=== PATIENT | male | born 1950 | race Caucasian/White ===

== ENCOUNTER 2017-05-19 20:38 | Emergency (ER) | payer MEDICARE, MEDICAID ==
[~2017-05-19] VITALS: Ht 177.8 cm; Wt 75.0 kg
--- NOTE | 2017-05-19 23:00 | REPUSA ---
CT of the cervical spine Clinical history: Pain. Trauma. Technique: Multiple axial CT images were obtained through the cervical spine without administration o f contrast. Coronal and sagittal 3-D reconstructed images were also obtained. Comparison: None. Findings: The cervical vertebral bodies are in satisfactory positioning and alignment. No fractures or dislocat ions are demonstrated. The odontoid process is intact. Intervertebral disc spaces are severely narrow ed at C4/C5, C5/C6, C6/C7, and C7/T1. Mild disc bulging is noted at all of these levels, without evid ence of central canal stenosis. Moderate bilateral neural foraminal narrowing is noted at these level s however. There is no evidence of facet subluxation. Moderate bilateral facet arthropathy with scler osis and osteophytes are noted. The cervical cranial junction is intact. The surrounding soft tissue s are within normal limits. Impression: 1. No acute fracture or traumatic injury. 2. Severe degenerative disc disease with small disc osteophyte complexes and disc bulges at C4/C5, C5 /C6, C6/C7, and C7/T1. There is no evidence of central canal stenosis at these levels, but there is m oderate bilateral neural foraminal narrowing. 3. Moderate diffuse bilateral facet arthropathy.
--- NOTE | 2017-05-19 23:00 | REPUSA ---
CT of the head Clinical history: trauma. Protocol: Multiple axial CT images obtained with 5 mm slice thickness were obtained through the head without administration of contrast. Comparison: None. Findings: The ventricles and sulci are symmetric but prominent in size bilaterally. There are periven tricular areas of low attenuation throughout the deep white matter. There is no evidence of acute hem orrhage or infarct. There is no midline shift, mass effect, or extra-axial fluid collection. The osse ous structures are unremarkable. The visualized paranasal sinuses and mastoid air cells are clear. Impression: No acute hemorrhage or infarct. Findings are consistent with moderate age-related atrophy and chronic small vessel ischemic disease.
[2017-05-20 06:24] VITALS: BP 131/90
--- NOTE | 2017-05-20 08:26 | ED PDOC ---
Post-Departure Follow-Up certified letter sent to patient pertaining to radiology report Virginia Small MD May 20, 2017 08:26
== END 2017-05-20 06:26 | disposition home or self-care (01) ==
LOC: EDBD 20:38 → M ED 20:38
DX: F10.129 Alcohol abuse with intoxication, unspecified (principal); G89.29 Other chronic pain; M54.9 Dorsalgia, unspecified; Z52.4 Kidney donor
CPT/HCPCS: 70450; 72125; 99283; G0480

== ENCOUNTER 2017-06-01 18:29 | Emergency (ER) | payer MEDICARE, MEDICAID ==
[~2017-06-01] VITALS: Ht 172.7 cm; Wt 65.9 kg
--- NOTE | 2017-06-01 20:01 | REP ---
HISTORY: Abdominal pain. The technique utilized in obtaining the radiograph has magnified the cardiac silhouette and accentuated the interstitial markings. The superior mediastinal structures are midline. The cardiac silhouette is unremarkable in size, shape, and position. The diaphragmatic surfaces of the lungs are regular, and the costophrenic angles are clear. The pulmonary chang are clear. The imaged osseous structures are intact. IMPRESSION: There is no acute cardiopulmonary disease. No change from 04/02/2017. There are multiple rib lesions. Some appear expansile. Does the patient have cancer? They could represent old healed fractures. Signed by Jose Post DO 06/02/2017 09:38 A
[2017-06-01 20:17] LABS: BASO # 0.1 10^3/uL (0.0-0.2); BASO % 0.7 % (0.0-1.0); EOS # 0.2 10^3/uL (0.0-0.50); EOS % 3.3 % (0.0-3.0); IMMATURE GRANULOCYTE % 0.4 % (0-0); LYMPH # 1.8 10^3/uL (1.5-4.5); LYMPH % 25.7 % (24.0-44.0); MEAN CORPUSCULAR HEMOGLOBIN 33.2 pg (27.0-33.0); MEAN CORPUSCULAR HGB CONC 36.5 g/dl (32.0-36.5); MEAN CORPUSCULAR VOLUME 91.2 fl (80.0-96.0); MONO # 0.6 10^3/uL (0.0-0.8); MONO % 8.4 % (0.0-5.0); NEUTROPHILS # 4.4 10^3/uL (1.8-7.7); NEUTROPHILS % 61.5 % (36.0-66.0); PLATELET COUNT, AUTOMATED 192 10^3/uL (150-450); RED CELL DISTRIBUTION WIDTH 13.3 % (11.5-14.5); WHITE BLOOD COUNT 7.2 10^3/uL (4.0-10.0)
[2017-06-01 20:32] LABS: ALBUMIN 3.1 GM/DL (3.2-5.2); ALBUMIN/GLOBULIN RATIO 1.03 (1.00-1.93); ALKALINE PHOSPHATASE 139 U/L (45-117); ALT/SGPT 29 U/L (12-78); AMYLASE 44 U/L (25-115); ANION GAP 12 MEQ/L (8-16); AST/SGOT 32 U/L (15-37); BILIRUBIN,DIRECT 0.2 MG/DL (0.0-0.2); BILIRUBIN,TOTAL 0.5 MG/DL (0.2-1.0); BLOOD UREA NITROGEN 4 MG/DL (7-18); CALCIUM LEVEL 8.3 MG/DL (8.8-10.2); CARBON DIOXIDE LEVEL 21 MEQ/L (21-32); CHLORIDE LEVEL 95 MEQ/L (98-107); CREATININE FOR GFR 0.58 MG/DL (0.70-1.30); GLOMERULAR FILTRATION RATE > 60.0 (>49); GLUCOSE, FASTING 73 MG/DL (80-110); POTASSIUM SERUM 3.8 MEQ/L (3.5-5.1); SODIUM LEVEL 128 MEQ/L (136-145); TOTAL PROTEIN 6.1 GM/DL (6.4-8.2)
[2017-06-01] MEDS ORDERED: NS 1,000 ML IV ONE (20:45)
[2017-06-01] MEDS ORDERED: ISOVUE-370 76% 100ML VIAL (Q9967) As Ordered ONE (21:23)
--- NOTE | 2017-06-01 23:10 | REPUSA ---
CT of the chest Clinical statement: Chest pain. Technique: Multiple axial CT images were obtained from the thoracic inlet through the upper abdomen a fter a bolus administration of nonionic intravenous contrast. Coronal and sagittal reconstructions we re also obtained. No comparison is available. Findings: The pulmonary arteries are well-opacified with contrast, with no intraluminal filling defec ts to suggest embolism. The thoracic aorta is unremarkable. Thyroid gland is within normal limits. Th ere is no thoracic lymphadenopathy. There are no pericardial or pleural effusions. The lungs are mer r of any infiltrates. Moderate emphysematous changes are noted, with upper lobe predominance. Limited imaging of the upper abdomen is unremarkable. There are no suspicious osseous lesions. Impression: 1. No evidence of pulmonary embolism. 2. No acute intrapulmonary disease. Moderate emphysema.
--- NOTE | 2017-06-01 23:20 | REPUSA ---
CT of the abdomen and pelvis with contrast Clinical statement: Pain. Technique: Multiple axial CT images were obtained from the base of the lungs through the floor of the pelvis utilizing 5 mm axial slices after administration of oral and nonionic intravenous contrast. C oronal and sagittal reconstructions were also obtained. No comparison is available. Findings: Chest: The visualized lung bases are clear. Abdomen: The liver, spleen, pancreas, left kidney, gallbladder, and adrenal glands are unremarkable. The right kidney is absent. The aorta is within normal limits. There is no evidence of abdominal lymp hadenopathy or ascites. Pelvis: The bowel is unremarkable, with no obstructive or inflammatory changes. The urinary bladder i s within normal limits. The other pelvic structures appear grossly intact. There is no evidence of pe lvic lymphadenopathy or ascites. Bones: There are no suspicious osseous abnormalities seen. There is moderately severe degenerative di sc disease at L5/S1. Impression: 1. No obstructive or inflammatory bowel changes. 2. Absent right kidney. The left kidney is unremarkable. 3. Moderate degenerative disc disease at L5/S1.
[2017-06-02 05:36] VITALS: BP 136/69
--- NOTE | 2017-06-02 05:47 | ECGEPIP ---
Stationary ECG Study [facility] - ED Test Date: 2017-06-01 Pat Name: ELIZABETH GARCIA Department: Room: - Gender: M [employer]: jt : 1950 Requested By: Nils Melton Order Number: [id number] Reading MD: Nils Lozada Measurements Intervals [place] Rate: 78 P: 57 AL: 199 QRS: 33 QRSD: 83 T: 57 QT: 384 QTc: 439 Interpretive Statements SINUS RHYTHM SEPTAL MYOCARDIAL INFARCTION, OF INDETERMINATE AGE SIMILAR TO 08/04/14 Electronically Signed On 06-02-2017 5:47:04 EDT by Nils Lozada
--- NOTE | 2017-06-05 10:42 | ED PDOC ---
Post-Departure Follow-Up certified letter sent to [facility] - needs fu jordanag Mery Francis MD Jun 05, 2017 10:42
== END 2017-06-02 06:17 | disposition home or self-care (01) ==
LOC: M ED 18:29
DX: F10.929 Alcohol use, unspecified with intoxication, unspecified (principal); E87.1 Hypo-osmolality and hyponatremia; F17.210 Nicotine dependence, cigarettes, uncomplicated
CPT/HCPCS: 71010; 71260; 74177; 80048; 80076; 82150; 82550; 82553; 83690; 84484; 85025; 93005; 99285; G0480; Q9967

== ENCOUNTER 2017-09-27 09:55 | Emergency (ER) | payer MEDICARE, MEDICAID ==
[2017-09-27] MEDS: IBUPROFEN 600 MG TAB PO (11:14)
== END 2017-09-27 11:17 | disposition home or self-care (01) ==
LOC: M ED 09:55
DX: S93.401A Sprain of unspecified ligament of right ankle, initial encounter (principal); F17.200 Nicotine dependence, unspecified, uncomplicated; W00.0XXA Fall on same level due to ice and snow, initial encounter; Y92.093 Driveway of other non-institutional residence as the place of occurrence of the external cause; Y93.01 Activity, walking, marching and hiking
CPT/HCPCS: 99284

== ENCOUNTER 2018-05-06 12:31 | Inpatient (IN) | payer MEDICARE, MEDICAID ==
[2018-05-06] MEDS: METOPROLOL TART 50 MG TAB PO (13:19)
[2018-05-06] MEDS: METOPROLOL 5 MG/5 ML VIAL IV ×6 (13:19→15:12)
[2018-05-06 13:34] LABS: BASO % 0.4 % (0.0-1.0); EOS # 0.1 10^3/uL (0.0-0.50); EOS % 0.7 % (0.0-3.0); HEMATOCRIT 41.1 % (42.0-52.0); HEMOGLOBIN 14.7 g/dl (13.5-17.5); IMMATURE GRANULOCYTE % 0.4 % (0-3.0); LYMPH % 9.7 % (24.0-44.0); MEAN CORPUSCULAR HEMOGLOBIN 33.5 pg (27.0-33.0); MEAN CORPUSCULAR HGB CONC 35.8 g/dl (32.0-36.5); MEAN CORPUSCULAR VOLUME 93.6 fl (80.0-96.0); MONO # 0.6 10^3/uL (0.0-0.8); MONO % 5.9 % (0.0-5.0); NEUTROPHILS # 8.5 10^3/uL (1.8-7.7); NEUTROPHILS % 82.9 % (36.0-66.0); PLATELET COUNT, AUTOMATED 180 10^3/uL (150-450); RED BLOOD COUNT 4.39 10^6/uL (4.30-6.10); RED CELL DISTRIBUTION WIDTH 14.5 % (11.5-14.5); WHITE BLOOD COUNT 10.3 10^3/uL (4.0-10.0)
[2018-05-06 13:51] LABS: INR 0.99; PROTHROMBIN TIME 13.2 SECONDS (12.1-14.4)
[2018-05-06 13:52] LABS: PARTIAL THROMBOPLASTIN TIME 29.8 SECONDS (25.4-37.6)
[2018-05-06 14:13] LABS: BLOOD UREA NITROGEN 16 MG/DL (7-18); CREATININE FOR GFR 1.67 MG/DL (0.70-1.30); GLUCOSE, FASTING 144 MG/DL (70-100)
[2018-05-06 14:14] LABS: CARBON DIOXIDE LEVEL 25 MEQ/L (21-32); CHLORIDE LEVEL 99 MEQ/L (98-107); POTASSIUM SERUM 3.8 MEQ/L (3.5-5.1); SODIUM LEVEL 133 MEQ/L (136-145)
[2018-05-06 14:15] LABS: ALT/SGPT 26 U/L (12-78); ANION GAP 9 MEQ/L (8-16); AST/SGOT 38 U/L (7-37); CALCIUM LEVEL 8.5 MG/DL (8.8-10.2); CK-MB VALUE MASS 4.2 NG/ML (<3.6); CPK CREATINE PHOSPHOKINASE 151 U/L (39-308)
[2018-05-06 14:16] LABS: ALBUMIN 3.5 GM/DL (3.2-5.2); ALKALINE PHOSPHATASE 110 U/L (45-117); BILIRUBIN,DIRECT 0.5 MG/DL (0.0-0.2); BILIRUBIN,TOTAL 2.3 MG/DL (0.2-1.0); MB/CK RELATIVE INDEX 0.03 (< OR =4); TOTAL PROTEIN 7.3 GM/DL (6.4-8.2)
[2018-05-06 14:18] LABS: ALBUMIN/GLOBULIN RATIO 0.92 (1.00-1.93); TROPONIN I < 0.02 NG/ML (< 0.10)
[2018-05-06] MEDS: METOPROLOL TART 25 MG TABLET PO (14:53)
[2018-05-06] MEDS ORDERED: METOPROLOL SUCC (TopROL XL) 50MG **XL** TAB PO ×2 (16:45→17:00)
[2018-05-06] MEDS: ASPIRIN 325 MG TAB PO (17:43)
[2018-05-06] MEDS: MULTIVITAMIN -ADULT INJECTION 10 ML, THIAMINE INJection 100 MG, FOLIC ACID 1 MG in NS 1... IV (17:44)
[2018-05-06] MEDS ORDERED: ONDANSETRON 4 MG TAB (S0181) PO (17:45)
[2018-05-06] MEDS ORDERED: ACETAMINOPHEN TAB 650MG DOSE (2X325MG) PO (17:45)
[2018-05-06] MEDS ORDERED: OXAZEPAM 10 MG CAP PO ×2 (18:15)
[2018-05-06] MEDS ORDERED: NS 1,000 ML IV (18:15)
[2018-05-06] MEDS: NS 1,000 ML IV (18:15)
[2018-05-06] MEDS ORDERED: HEPARIN SOD (PORCINE) 5000 UNITS/ML VIAL IV (20:30)
[2018-05-06] MEDS ORDERED: ATORVASTATIN 20 MG TAB PO (21:00)
[2018-05-06 21:21] LABS: FREE THYROXINE INDEX 2.6 % (1.4-3.8); T UPTAKE 36 % (33-40); THYROXINE (T4) 7.2 UG/DL (4.5-12.0)
[2018-05-06] MEDS ORDERED: HEPARIN SOD (PORCINE) 5000 UNITS/ML VIAL SC (22:00)
[2018-05-06] MEDS: DOCUSATE SODIUM 100 MG CAP PO (22:13)
[2018-05-06] MEDS: HEPARIN DRIP 25,000 UNITS in APPROPRIATE DILUENT 1 EA IV (22:15)
[2018-05-06 22:22] LABS: PARTIAL THROMBOPLASTIN TIME 29.3 SECONDS (25.4-37.6)
[2018-05-06 22:41] LABS: CPK CREATINE PHOSPHOKINASE 137 U/L (39-308); MB/CK RELATIVE INDEX 2.41 (< OR =4); TROPONIN I < 0.02 NG/ML (< 0.10)
[2018-05-06 22:59] LABS: OSMOLALITY URINE 541 MOSM/KG (500-800)
[2018-05-07 00:11] LABS: CHLORIDE,RANDOM URINE 22 MEQ/L; POTASSIUM RANDOM URINE 33.1 MEQ/L; SODIUM,RANDOM URINE < 10 MEQ/L
[2018-05-07 00:43] LABS: ESTIMATED AVERAGE GLUCOSE 91 MG/DL (60-110); HEMOGLOBIN A1c 4.8 %
[2018-05-07 01:37] LABS: ETHYL ALCOHOL (ETHANOL) < 0.003 % (0.000-0.010)
[2018-05-07] MEDS ORDERED: THIAMINE 100 MG TAB PO (09:00)
[2018-05-07] MEDS ORDERED: ATORVASTATIN 20 MG TAB PO (09:00)
[2018-05-07] MEDS ORDERED: FOLIC ACID 1 MG TAB PO (09:00)
[2018-05-07] MEDS ORDERED: MULTIVITAMINS/MINERALS THERAP 1 TAB PO (09:00)
[2018-05-07] MEDS ORDERED: ASPIRIN 81 MG ENTERIC TAB PO (09:00)
[2018-05-07 13:00] LABS: HEPATITIS A ANTIBODY IGM NEGATIVE (NEGATIVE); HEPATITIS B CORE ANTIBODY IGM NEGATIVE (NEGATIVE); HEPATITIS B SURFACE ANTIGEN NEGATIVE (NEGATIVE)
[2018-05-07 14:38] LABS: HEPATITIS C VIRUS ABY INDEX 0.1 INDEX (<0.8)
[2018-05-08 12:23] LABS: BEDSIDE GLUCOSE 243 MG/DL (80-115)
== END 2018-05-07 02:52 | disposition short-term general hospital (02) | DRG 64 ==
LOC: M ED 12:31 → M ED INP 18:10 → M PCU 21:38
PROVIDERS: Hospitalist
DX: I63.59 Cerebral infarction due to unspecified occlusion or stenosis of other cerebral artery (principal); I61.4 Nontraumatic intracerebral hemorrhage in cerebellum; I42.6 Alcoholic cardiomyopathy; I48.91 Unspecified atrial fibrillation; F10.10 Alcohol abuse, uncomplicated; F17.210 Nicotine dependence, cigarettes, uncomplicated

== ENCOUNTER 2018-05-15 17:35 | Inpatient (IN) | payer MEDICARE, MEDICAID ==
[2018-05-15] MEDS: PRAVASTATIN 10 MG TAB PO (20:12)
[2018-05-15] MEDS: DOCUSATE SODIUM 100 MG CAP PO (20:12)
[2018-05-16 06:19] LABS: HEMATOCRIT 35.8 % (42.0-52.0); HEMOGLOBIN 12.8 g/dl (13.5-17.5); MEAN CORPUSCULAR HEMOGLOBIN 33.4 pg (27.0-33.0); MEAN CORPUSCULAR HGB CONC 35.8 g/dl (32.0-36.5); MEAN CORPUSCULAR VOLUME 93.5 fl (80.0-96.0); PLATELET COUNT, AUTOMATED 281 10^3/uL (150-450); RED BLOOD COUNT 3.83 10^6/uL (4.30-6.10); RED CELL DISTRIBUTION WIDTH 13.5 % (11.5-14.5); WHITE BLOOD COUNT 6.3 10^3/uL (4.0-10.0)
[2018-05-16 07:07] LABS: ANION GAP 9 MEQ/L (8-16); BLOOD UREA NITROGEN 7 MG/DL (7-18); CALCIUM LEVEL 8.4 MG/DL (8.8-10.2); CARBON DIOXIDE LEVEL 24 MEQ/L (21-32); CHLORIDE LEVEL 96 MEQ/L (98-107); CREATININE FOR GFR 0.91 MG/DL (0.70-1.30); GLOMERULAR FILTRATION RATE > 60.0 (>49); GLUCOSE, FASTING 85 MG/DL (70-100); MAGNESIUM LEVEL 1.6 MG/DL (1.8-2.4); POTASSIUM SERUM 4.4 MEQ/L (3.5-5.1); SODIUM LEVEL 129 MEQ/L (136-145)
[2018-05-16] MEDS: METOPROLOL SUCC (TopROL XL) 100MG *XL* TAB PO (08:47)
[2018-05-16] MEDS: FOLIC ACID 1 MG TAB PO (08:47)
[2018-05-16] MEDS: MULTIVITAMINS/MINERALS THERAP 1 TAB PO (08:48)
[2018-05-16] MEDS: APIXABAN 5 MG TAB (ELIQUIS) PO ×2 (08:48→20:51)
[2018-05-16] MEDS: DOCUSATE SODIUM 100 MG CAP PO ×2 (08:48→20:51)
[2018-05-16] MEDS: THIAMINE 100 MG TAB PO (08:48)
[2018-05-16] MEDS: LISINOPRIL *2.5 MG* TAB PO (08:48)
[2018-05-16] MEDS: PRAVASTATIN 10 MG TAB PO (20:51)
[2018-05-17 08:11] LABS: HEMATOCRIT 35.8 % (42.0-52.0); HEMOGLOBIN 12.8 g/dl (13.5-17.5); MEAN CORPUSCULAR HEMOGLOBIN 33.5 pg (27.0-33.0); MEAN CORPUSCULAR HGB CONC 35.8 g/dl (32.0-36.5); MEAN CORPUSCULAR VOLUME 93.7 fl (80.0-96.0); PLATELET COUNT, AUTOMATED 313 10^3/uL (150-450); RED BLOOD COUNT 3.82 10^6/uL (4.30-6.10); RED CELL DISTRIBUTION WIDTH 13.6 % (11.5-14.5); WHITE BLOOD COUNT 6.9 10^3/uL (4.0-10.0)
[2018-05-17] MEDS: METOPROLOL SUCC (TopROL XL) 100MG *XL* TAB PO (08:13)
[2018-05-17] MEDS: DOCUSATE SODIUM 100 MG CAP PO ×2 (08:13→21:22)
[2018-05-17] MEDS: THIAMINE 100 MG TAB PO (08:13)
[2018-05-17] MEDS: LISINOPRIL *2.5 MG* TAB PO (08:13)
[2018-05-17] MEDS: MULTIVITAMINS/MINERALS THERAP 1 TAB PO (08:13)
[2018-05-17] MEDS: APIXABAN 5 MG TAB (ELIQUIS) PO ×2 (08:13→21:23)
[2018-05-17] MEDS: FOLIC ACID 1 MG TAB PO (08:13)
[2018-05-17 08:48] LABS: ANION GAP 9 MEQ/L (8-16); BLOOD UREA NITROGEN 9 MG/DL (7-18); CALCIUM LEVEL 8.1 MG/DL (8.8-10.2); CARBON DIOXIDE LEVEL 23 MEQ/L (21-32); CHLORIDE LEVEL 98 MEQ/L (98-107); CREATININE FOR GFR 0.95 MG/DL (0.70-1.30); GLOMERULAR FILTRATION RATE > 60.0 (>49); GLUCOSE, FASTING 90 MG/DL (70-100); MAGNESIUM LEVEL 1.8 MG/DL (1.8-2.4); POTASSIUM SERUM 4.6 MEQ/L (3.5-5.1); SODIUM LEVEL 130 MEQ/L (136-145)
[2018-05-17] MEDS: PRAVASTATIN 10 MG TAB PO (21:23)
[2018-05-18 07:30] LABS: HEMATOCRIT 35.2 % (42.0-52.0); HEMOGLOBIN 12.5 g/dl (13.5-17.5); MEAN CORPUSCULAR HEMOGLOBIN 33.3 pg (27.0-33.0); MEAN CORPUSCULAR HGB CONC 35.5 g/dl (32.0-36.5); MEAN CORPUSCULAR VOLUME 93.9 fl (80.0-96.0); PLATELET COUNT, AUTOMATED 295 10^3/uL (150-450); RED BLOOD COUNT 3.75 10^6/uL (4.30-6.10); RED CELL DISTRIBUTION WIDTH 13.5 % (11.5-14.5); WHITE BLOOD COUNT 7.2 10^3/uL (4.0-10.0)
[2018-05-18 07:57] LABS: ANION GAP 8 MEQ/L (8-16); BLOOD UREA NITROGEN 8 MG/DL (7-18); CALCIUM LEVEL 8.3 MG/DL (8.8-10.2); CARBON DIOXIDE LEVEL 23 MEQ/L (21-32); CHLORIDE LEVEL 98 MEQ/L (98-107); CREATININE FOR GFR 0.83 MG/DL (0.70-1.30); GLOMERULAR FILTRATION RATE > 60.0 (>49); GLUCOSE, FASTING 87 MG/DL (70-100); MAGNESIUM LEVEL 1.8 MG/DL (1.8-2.4); POTASSIUM SERUM 4.8 MEQ/L (3.5-5.1); SODIUM LEVEL 129 MEQ/L (136-145)
[2018-05-18] MEDS: FOLIC ACID 1 MG TAB PO (10:22)
[2018-05-18] MEDS: MULTIVITAMINS/MINERALS THERAP 1 TAB PO (10:22)
[2018-05-18] MEDS: DOCUSATE SODIUM 100 MG CAP PO ×2 (10:22→21:48)
[2018-05-18] MEDS: LISINOPRIL *2.5 MG* TAB PO (10:22)
[2018-05-18] MEDS: APIXABAN 5 MG TAB (ELIQUIS) PO ×2 (10:23→21:48)
[2018-05-18] MEDS: METOPROLOL SUCC (TopROL XL) 100MG *XL* TAB PO (10:23)
[2018-05-18] MEDS: THIAMINE 100 MG TAB PO (10:23)
[2018-05-18] MEDS: PRAVASTATIN 10 MG TAB PO (21:48)
[2018-05-19 06:50] LABS: HEMATOCRIT 36.8 % (42.0-52.0); HEMOGLOBIN 13.3 g/dl (13.5-17.5); MEAN CORPUSCULAR HEMOGLOBIN 33.1 pg (27.0-33.0); MEAN CORPUSCULAR HGB CONC 36.1 g/dl (32.0-36.5); MEAN CORPUSCULAR VOLUME 91.5 fl (80.0-96.0); PLATELET COUNT, AUTOMATED 319 10^3/uL (150-450); RED BLOOD COUNT 4.02 10^6/uL (4.30-6.10); RED CELL DISTRIBUTION WIDTH 13.3 % (11.5-14.5); WHITE BLOOD COUNT 8.9 10^3/uL (4.0-10.0)
[2018-05-19 07:09] LABS: ANION GAP 11 MEQ/L (8-16); BLOOD UREA NITROGEN 9 MG/DL (7-18); CALCIUM LEVEL 8.5 MG/DL (8.8-10.2); CARBON DIOXIDE LEVEL 20 MEQ/L (21-32); CHLORIDE LEVEL 97 MEQ/L (98-107); CREATININE FOR GFR 0.87 MG/DL (0.70-1.30); GLOMERULAR FILTRATION RATE > 60.0 (>49); GLUCOSE, FASTING 90 MG/DL (70-100); MAGNESIUM LEVEL 1.8 MG/DL (1.8-2.4); POTASSIUM SERUM 4.6 MEQ/L (3.5-5.1); SODIUM LEVEL 128 MEQ/L (136-145)
[2018-05-19] MEDS: DOCUSATE SODIUM 100 MG CAP PO ×2 (09:00→21:53)
[2018-05-19] MEDS: LISINOPRIL *2.5 MG* TAB PO (09:15)
[2018-05-19] MEDS: THIAMINE 100 MG TAB PO (09:16)
[2018-05-19] MEDS: APIXABAN 5 MG TAB (ELIQUIS) PO ×2 (09:16→21:53)
[2018-05-19] MEDS: FOLIC ACID 1 MG TAB PO (09:16)
[2018-05-19] MEDS: METOPROLOL SUCC (TopROL XL) 100MG *XL* TAB PO (09:16)
[2018-05-19] MEDS: MULTIVITAMINS/MINERALS THERAP 1 TAB PO (09:16)
[2018-05-19] MEDS: PRAVASTATIN 10 MG TAB PO (21:53)
[2018-05-19] MEDS: ACETAMINOPHEN TAB 650MG DOSE (2X325MG) PO (21:54)
[2018-05-20] MEDS ORDERED: hydrOXYzine 10 MG TAB PO (07:15)
[2018-05-20] MEDS ORDERED: TRIAMCINOLONE ACET 0.1% OINTMENT 80 GM EXT (07:15)
[2018-05-20] MEDS ORDERED: MOM 30ML SUSPENSION UDC PO (07:30)
[2018-05-20] MEDS ORDERED: FLEET ENEMA PR (07:30)
[2018-05-20] MEDS: FOLIC ACID 1 MG TAB PO (09:27)
[2018-05-20] MEDS: LISINOPRIL *2.5 MG* TAB PO (09:27)
[2018-05-20] MEDS: DOCUSATE SODIUM 100 MG CAP PO ×2 (09:27→21:00)
[2018-05-20] MEDS: THIAMINE 100 MG TAB PO (09:27)
[2018-05-20] MEDS: MULTIVITAMINS/MINERALS THERAP 1 TAB PO (09:27)
[2018-05-20] MEDS: METOPROLOL SUCC (TopROL XL) 100MG *XL* TAB PO (09:27)
[2018-05-20] MEDS: APIXABAN 5 MG TAB (ELIQUIS) PO ×2 (09:27→21:00)
[2018-05-20] MEDS: PRAVASTATIN 10 MG TAB PO (21:00)
[2018-05-21 06:39] LABS: HEMATOCRIT 36.8 % (42.0-52.0); MEAN CORPUSCULAR HEMOGLOBIN 32.8 pg (27.0-33.0); MEAN CORPUSCULAR HGB CONC 35.3 g/dl (32.0-36.5); MEAN CORPUSCULAR VOLUME 92.9 fl (80.0-96.0); PLATELET COUNT, AUTOMATED 289 10^3/uL (150-450); RED BLOOD COUNT 3.96 10^6/uL (4.30-6.10); RED CELL DISTRIBUTION WIDTH 13.6 % (11.5-14.5)
[2018-05-21 07:00] LABS: ANION GAP 8 MEQ/L (8-16); BLOOD UREA NITROGEN 10 MG/DL (7-18); CALCIUM LEVEL 8.4 MG/DL (8.8-10.2); CARBON DIOXIDE LEVEL 24 MEQ/L (21-32); CHLORIDE LEVEL 96 MEQ/L (98-107); CREATININE FOR GFR 0.95 MG/DL (0.70-1.30); GLOMERULAR FILTRATION RATE > 60.0 (>49); GLUCOSE, FASTING 98 MG/DL (70-100); MAGNESIUM LEVEL 1.8 MG/DL (1.8-2.4); POTASSIUM SERUM 4.9 MEQ/L (3.5-5.1); SODIUM LEVEL 128 MEQ/L (136-145)
[2018-05-21] MEDS: APIXABAN 5 MG TAB (ELIQUIS) PO ×2 (08:52→21:28)
[2018-05-21] MEDS: FOLIC ACID 1 MG TAB PO (08:52)
[2018-05-21] MEDS: THIAMINE 100 MG TAB PO (08:52)
[2018-05-21] MEDS: MULTIVITAMINS/MINERALS THERAP 1 TAB PO (08:52)
[2018-05-21] MEDS: DOCUSATE SODIUM 100 MG CAP PO ×2 (08:52→21:25)
[2018-05-21] MEDS: LISINOPRIL *2.5 MG* TAB PO (08:54)
[2018-05-21] MEDS: METOPROLOL SUCC (TopROL XL) 100MG *XL* TAB PO (08:55)
[2018-05-21] MEDS ORDERED: ALBUTEROL 90 MCG/ACT 8GM HFA INHALER INH (11:45)
[2018-05-21] MEDS: PRAVASTATIN 10 MG TAB PO (21:28)
[2018-05-22 06:42] LABS: HEMATOCRIT 35.2 % (42.0-52.0); HEMOGLOBIN 12.6 g/dl (13.5-17.5); MEAN CORPUSCULAR HEMOGLOBIN 32.9 pg (27.0-33.0); MEAN CORPUSCULAR HGB CONC 35.8 g/dl (32.0-36.5); MEAN CORPUSCULAR VOLUME 91.9 fl (80.0-96.0); PLATELET COUNT, AUTOMATED 274 10^3/uL (150-450); RED BLOOD COUNT 3.83 10^6/uL (4.30-6.10); RED CELL DISTRIBUTION WIDTH 13.6 % (11.5-14.5); WHITE BLOOD COUNT 7.6 10^3/uL (4.0-10.0)
[2018-05-22 07:01] LABS: ANION GAP 9 MEQ/L (8-16); BLOOD UREA NITROGEN 10 MG/DL (7-18); CALCIUM LEVEL 8.7 MG/DL (8.8-10.2); CARBON DIOXIDE LEVEL 21 MEQ/L (21-32); CHLORIDE LEVEL 97 MEQ/L (98-107); CREATININE FOR GFR 0.91 MG/DL (0.70-1.30); GLOMERULAR FILTRATION RATE > 60.0 (>49); GLUCOSE, FASTING 89 MG/DL (70-100); MAGNESIUM LEVEL 1.8 MG/DL (1.8-2.4); POTASSIUM SERUM 4.5 MEQ/L (3.5-5.1); SODIUM LEVEL 127 MEQ/L (136-145)
[2018-05-22 07:22] LABS: URIC ACID 5.1 MG/DL (3.5-7.2)
[2018-05-22] MEDS: LISINOPRIL *2.5 MG* TAB PO (10:25)
[2018-05-22] MEDS: METOPROLOL SUCC (TopROL XL) 100MG *XL* TAB PO (10:25)
[2018-05-22] MEDS: THIAMINE 100 MG TAB PO (10:25)
[2018-05-22] MEDS: DOCUSATE SODIUM 100 MG CAP PO ×2 (10:33→21:09)
[2018-05-22] MEDS: APIXABAN 5 MG TAB (ELIQUIS) PO ×2 (10:33→21:10)
[2018-05-22] MEDS: FOLIC ACID 1 MG TAB PO (10:33)
[2018-05-22] MEDS: FUROSEMIDE 40 MG/4 ML VIAL (J1940) IV ×2 (10:34→17:47)
[2018-05-22] MEDS: MULTIVITAMINS/MINERALS THERAP 1 TAB PO (10:34)
[2018-05-22] MEDS: ALBUTEROL SULFATE 2.5 MG/0.5 ML INH NEB SOLN NEB ×3 (10:51→21:57)
[2018-05-22 18:39] LABS: SODIUM,RANDOM URINE 80 MEQ/L
[2018-05-22 19:14] LABS: OSMOLALITY URINE 257 MOSM/KG (500-800)
[2018-05-22] MEDS: PRAVASTATIN 10 MG TAB PO (21:09)
[2018-05-23] MEDS: ALBUTEROL SULFATE 2.5 MG/0.5 ML INH NEB SOLN NEB ×4 (01:34→20:00)
[2018-05-23 06:30] LABS: HEMATOCRIT 34.6 % (42.0-52.0); HEMOGLOBIN 12.4 g/dl (13.5-17.5); MEAN CORPUSCULAR HEMOGLOBIN 33.6 pg (27.0-33.0); MEAN CORPUSCULAR HGB CONC 35.8 g/dl (32.0-36.5); MEAN CORPUSCULAR VOLUME 93.8 fl (80.0-96.0); PLATELET COUNT, AUTOMATED 255 10^3/uL (150-450); RED BLOOD COUNT 3.69 10^6/uL (4.30-6.10); RED CELL DISTRIBUTION WIDTH 13.6 % (11.5-14.5)
[2018-05-23 06:51] LABS: ANION GAP 8 MEQ/L (8-16); BLOOD UREA NITROGEN 10 MG/DL (7-18); CALCIUM LEVEL 7.5 MG/DL (8.8-10.2); CARBON DIOXIDE LEVEL 25 MEQ/L (21-32); CHLORIDE LEVEL 93 MEQ/L (98-107); CREATININE FOR GFR 1.04 MG/DL (0.70-1.30); GLOMERULAR FILTRATION RATE > 60.0 (>49); GLUCOSE, FASTING 85 MG/DL (70-100); POTASSIUM SERUM 3.7 MEQ/L (3.5-5.1); SODIUM LEVEL 126 MEQ/L (136-145)
[2018-05-23] MEDS: TIOTROPIUM INHALER/CAPSULE (SPIRIVA) INH (08:00)
[2018-05-23] MEDS: DOCUSATE SODIUM 100 MG CAP PO ×2 (09:36→20:40)
[2018-05-23] MEDS: FUROSEMIDE 40 MG/4 ML VIAL (J1940) IV ×2 (09:36→17:20)
[2018-05-23] MEDS: APIXABAN 5 MG TAB (ELIQUIS) PO ×2 (09:36→20:40)
[2018-05-23] MEDS: MAGNESIUM OXIDE 400 MG TAB (MAG-OX) PO ×2 (09:36→20:40)
[2018-05-23] MEDS: MULTIVITAMINS/MINERALS THERAP 1 TAB PO (09:36)
[2018-05-23] MEDS: METOPROLOL SUCC (TopROL XL) 100MG *XL* TAB PO (09:37)
[2018-05-23] MEDS: THIAMINE 100 MG TAB PO (09:37)
[2018-05-23] MEDS: LISINOPRIL *2.5 MG* TAB PO (09:37)
[2018-05-23] MEDS: FOLIC ACID 1 MG TAB PO (09:37)
[2018-05-23] MEDS: PRAVASTATIN 10 MG TAB PO (20:40)
[2018-05-24] MEDS: ALBUTEROL SULFATE 2.5 MG/0.5 ML INH NEB SOLN NEB ×4 (00:51→20:19)
[2018-05-24] MEDS: TIOTROPIUM INHALER/CAPSULE (SPIRIVA) INH (08:00)
[2018-05-24 08:42] LABS: OSMOLALITY SERUM 260 MOSM/KG (280-301)
[2018-05-24] MEDS: METOPROLOL SUCC (TopROL XL) 100MG *XL* TAB PO (09:38)
[2018-05-24] MEDS: MAGNESIUM OXIDE 400 MG TAB (MAG-OX) PO ×2 (09:38→20:17)
[2018-05-24] MEDS: THIAMINE 100 MG TAB PO (09:38)
[2018-05-24] MEDS: DOCUSATE SODIUM 100 MG CAP PO ×2 (09:38→20:16)
[2018-05-24] MEDS: FOLIC ACID 1 MG TAB PO (09:38)
[2018-05-24] MEDS: MULTIVITAMINS/MINERALS THERAP 1 TAB PO (09:38)
[2018-05-24] MEDS: APIXABAN 5 MG TAB (ELIQUIS) PO ×2 (09:38→20:16)
[2018-05-24] MEDS: LISINOPRIL *2.5 MG* TAB PO (09:39)
[2018-05-24 10:29] LABS: CORTISOL AM 20.8 UG/DL (4.3-22.4)
[2018-05-24 11:22] LABS: ANION GAP 11 MEQ/L (8-16); BLOOD UREA NITROGEN 15 MG/DL (7-18); CALCIUM LEVEL 8.4 MG/DL (8.8-10.2); CARBON DIOXIDE LEVEL 28 MEQ/L (21-32); CHLORIDE LEVEL 91 MEQ/L (98-107); CREATININE FOR GFR 1.13 MG/DL (0.70-1.30); GLOMERULAR FILTRATION RATE > 60.0 (>49); GLUCOSE, FASTING 102 MG/DL (70-100); POTASSIUM SERUM 3.6 MEQ/L (3.5-5.1); SODIUM LEVEL 130 MEQ/L (136-145)
[2018-05-24] MEDS: FUROSEMIDE 20 MG TAB PO (12:51)
[2018-05-24] MEDS: PRAVASTATIN 10 MG TAB PO (20:17)
[2018-05-24 22:20] LABS: OSMOLALITY URINE 291 MOSM/KG (500-800)
[2018-05-24 22:26] LABS: SODIUM,RANDOM URINE 38 MEQ/L
[2018-05-25] MEDS: ALBUTEROL SULFATE 2.5 MG/0.5 ML INH NEB SOLN NEB ×4 (01:41→20:37)
[2018-05-25] MEDS: TIOTROPIUM INHALER/CAPSULE (SPIRIVA) INH (08:05)
[2018-05-25] MEDS: FOLIC ACID 1 MG TAB PO (09:50)
[2018-05-25] MEDS: LISINOPRIL *2.5 MG* TAB PO (09:50)
[2018-05-25] MEDS: FUROSEMIDE 20 MG TAB PO (09:51)
[2018-05-25] MEDS: APIXABAN 5 MG TAB (ELIQUIS) PO ×2 (09:51→20:23)
[2018-05-25] MEDS: THIAMINE 100 MG TAB PO (09:51)
[2018-05-25] MEDS: DOCUSATE SODIUM 100 MG CAP PO ×2 (09:52→20:23)
[2018-05-25] MEDS: MULTIVITAMINS/MINERALS THERAP 1 TAB PO (09:52)
[2018-05-25] MEDS: MAGNESIUM OXIDE 400 MG TAB (MAG-OX) PO ×2 (09:53→20:23)
[2018-05-25] MEDS: METOPROLOL SUCC (TopROL XL) 100MG *XL* TAB PO (09:53)
[2018-05-25] MEDS: PRAVASTATIN 10 MG TAB PO (20:23)
[2018-05-26] MEDS: ALBUTEROL SULFATE 2.5 MG/0.5 ML INH NEB SOLN NEB ×4 (02:00→20:24)
[2018-05-26] MEDS: TIOTROPIUM INHALER/CAPSULE (SPIRIVA) INH (07:43)
[2018-05-26] MEDS: METOPROLOL SUCC (TopROL XL) 100MG *XL* TAB PO (09:35)
[2018-05-26] MEDS: APIXABAN 5 MG TAB (ELIQUIS) PO ×2 (09:35→20:40)
[2018-05-26] MEDS: FOLIC ACID 1 MG TAB PO (09:35)
[2018-05-26] MEDS: MAGNESIUM OXIDE 400 MG TAB (MAG-OX) PO ×2 (09:35→20:41)
[2018-05-26] MEDS: FUROSEMIDE 20 MG TAB PO (09:35)
[2018-05-26] MEDS: MULTIVITAMINS/MINERALS THERAP 1 TAB PO (09:35)
[2018-05-26] MEDS: LISINOPRIL *2.5 MG* TAB PO (09:35)
[2018-05-26] MEDS: DOCUSATE SODIUM 100 MG CAP PO ×2 (09:35→20:41)
[2018-05-26] MEDS: THIAMINE 100 MG TAB PO (09:35)
[2018-05-26] MEDS: PRAVASTATIN 10 MG TAB PO (20:41)
[2018-05-27] MEDS: ALBUTEROL SULFATE 2.5 MG/0.5 ML INH NEB SOLN NEB ×4 (01:22→20:00)
[2018-05-27 06:55] LABS: HEMATOCRIT 35.6 % (42.0-52.0); HEMOGLOBIN 12.9 g/dl (13.5-17.5); MEAN CORPUSCULAR HEMOGLOBIN 33.2 pg (27.0-33.0); MEAN CORPUSCULAR HGB CONC 36.2 g/dl (32.0-36.5); MEAN CORPUSCULAR VOLUME 91.5 fl (80.0-96.0); PLATELET COUNT, AUTOMATED 208 10^3/uL (150-450); RED BLOOD COUNT 3.89 10^6/uL (4.30-6.10); RED CELL DISTRIBUTION WIDTH 13.2 % (11.5-14.5); WHITE BLOOD COUNT 6.1 10^3/uL (4.0-10.0)
[2018-05-27 07:26] LABS: ANION GAP 8 MEQ/L (8-16); BLOOD UREA NITROGEN 11 MG/DL (7-18); CALCIUM LEVEL 8.2 MG/DL (8.8-10.2); CARBON DIOXIDE LEVEL 24 MEQ/L (21-32); CHLORIDE LEVEL 95 MEQ/L (98-107); CREATININE FOR GFR 0.85 MG/DL (0.70-1.30); GLOMERULAR FILTRATION RATE > 60.0 (>49); GLUCOSE, FASTING 89 MG/DL (70-100); POTASSIUM SERUM 4.4 MEQ/L (3.5-5.1); SODIUM LEVEL 127 MEQ/L (136-145)
[2018-05-27] MEDS: TIOTROPIUM INHALER/CAPSULE (SPIRIVA) INH (07:51)
[2018-05-27] MEDS: MAGNESIUM OXIDE 400 MG TAB (MAG-OX) PO ×2 (09:44→20:58)
[2018-05-27] MEDS: DOCUSATE SODIUM 100 MG CAP PO ×2 (09:44→20:57)
[2018-05-27] MEDS: FOLIC ACID 1 MG TAB PO (09:44)
[2018-05-27] MEDS: LISINOPRIL *2.5 MG* TAB PO (09:44)
[2018-05-27] MEDS: FUROSEMIDE 20 MG TAB PO ×2 (09:44→11:00)
[2018-05-27] MEDS: THIAMINE 100 MG TAB PO (09:45)
[2018-05-27] MEDS: APIXABAN 5 MG TAB (ELIQUIS) PO ×2 (09:45→20:57)
[2018-05-27] MEDS: METOPROLOL SUCC (TopROL XL) 100MG *XL* TAB PO (09:45)
[2018-05-27] MEDS: MULTIVITAMINS/MINERALS THERAP 1 TAB PO (09:45)
[2018-05-27] MEDS: PRAVASTATIN 10 MG TAB PO (20:57)
[2018-05-28] MEDS: ALBUTEROL SULFATE 2.5 MG/0.5 ML INH NEB SOLN NEB ×3 (02:00→20:00)
[2018-05-28] MEDS: LISINOPRIL *2.5 MG* TAB PO (10:08)
[2018-05-28] MEDS: METOPROLOL SUCC (TopROL XL) 100MG *XL* TAB PO (10:08)
[2018-05-28] MEDS: FUROSEMIDE 20 MG TAB PO (10:09)
[2018-05-28] MEDS: MAGNESIUM OXIDE 400 MG TAB (MAG-OX) PO ×2 (10:09→20:51)
[2018-05-28] MEDS: APIXABAN 5 MG TAB (ELIQUIS) PO ×2 (10:09→20:52)
[2018-05-28] MEDS: DOCUSATE SODIUM 100 MG CAP PO ×2 (10:09→20:51)
[2018-05-28] MEDS: THIAMINE 100 MG TAB PO (10:09)
[2018-05-28] MEDS: FOLIC ACID 1 MG TAB PO (10:10)
[2018-05-28] MEDS: MULTIVITAMINS/MINERALS THERAP 1 TAB PO (10:10)
[2018-05-28] MEDS: TIOTROPIUM INHALER/CAPSULE (SPIRIVA) INH (12:00)
[2018-05-28] MEDS: PRAVASTATIN 10 MG TAB PO (20:52)
[2018-05-29] MEDS: ALBUTEROL SULFATE 2.5 MG/0.5 ML INH NEB SOLN NEB ×4 (02:00→20:00)
[2018-05-29] MEDS: TIOTROPIUM INHALER/CAPSULE (SPIRIVA) INH (07:52)
[2018-05-29] MEDS: MAGNESIUM OXIDE 400 MG TAB (MAG-OX) PO ×2 (09:08→20:55)
[2018-05-29] MEDS: FOLIC ACID 1 MG TAB PO (09:08)
[2018-05-29] MEDS: MULTIVITAMINS/MINERALS THERAP 1 TAB PO (09:08)
[2018-05-29] MEDS: THIAMINE 100 MG TAB PO (09:08)
[2018-05-29] MEDS: LISINOPRIL *2.5 MG* TAB PO (09:09)
[2018-05-29] MEDS: APIXABAN 5 MG TAB (ELIQUIS) PO ×2 (09:09→20:55)
[2018-05-29] MEDS: DOCUSATE SODIUM 100 MG CAP PO ×2 (09:09→20:55)
[2018-05-29] MEDS: FUROSEMIDE 20 MG TAB PO (09:09)
[2018-05-29] MEDS: METOPROLOL SUCC (TopROL XL) 100MG *XL* TAB PO (09:10)
[2018-05-29] MEDS: PRAVASTATIN 10 MG TAB PO (20:55)
[2018-05-30] MEDS: ALBUTEROL SULFATE 2.5 MG/0.5 ML INH NEB SOLN NEB ×4 (01:50→20:43)
[2018-05-30 06:39] LABS: HEMATOCRIT 36.8 % (42.0-52.0); HEMOGLOBIN 13.2 g/dl (13.5-17.5); MEAN CORPUSCULAR HEMOGLOBIN 33.2 pg (27.0-33.0); MEAN CORPUSCULAR HGB CONC 35.9 g/dl (32.0-36.5); MEAN CORPUSCULAR VOLUME 92.5 fl (80.0-96.0); PLATELET COUNT, AUTOMATED 178 10^3/uL (150-450); RED BLOOD COUNT 3.98 10^6/uL (4.30-6.10); RED CELL DISTRIBUTION WIDTH 12.9 % (11.5-14.5); WHITE BLOOD COUNT 6.9 10^3/uL (4.0-10.0)
[2018-05-30 06:58] LABS: ANION GAP 10 MEQ/L (8-16); BLOOD UREA NITROGEN 13 MG/DL (7-18); CALCIUM LEVEL 8.1 MG/DL (8.8-10.2); CARBON DIOXIDE LEVEL 23 MEQ/L (21-32); CHLORIDE LEVEL 97 MEQ/L (98-107); CREATININE FOR GFR 0.93 MG/DL (0.70-1.30); GLOMERULAR FILTRATION RATE > 60.0 (>49); GLUCOSE, FASTING 92 MG/DL (70-100); POTASSIUM SERUM 4.3 MEQ/L (3.5-5.1); SODIUM LEVEL 130 MEQ/L (136-145)
[2018-05-30] MEDS: TIOTROPIUM INHALER/CAPSULE (SPIRIVA) INH (07:29)
[2018-05-30] MEDS: THIAMINE 100 MG TAB PO (09:04)
[2018-05-30] MEDS: DOCUSATE SODIUM 100 MG CAP PO ×2 (09:04→20:20)
[2018-05-30] MEDS: MAGNESIUM OXIDE 400 MG TAB (MAG-OX) PO ×2 (09:04→20:19)
[2018-05-30] MEDS: LISINOPRIL *2.5 MG* TAB PO (09:04)
[2018-05-30] MEDS: METOPROLOL SUCC (TopROL XL) 100MG *XL* TAB PO (09:05)
[2018-05-30] MEDS: MULTIVITAMINS/MINERALS THERAP 1 TAB PO (09:05)
[2018-05-30] MEDS: APIXABAN 5 MG TAB (ELIQUIS) PO ×2 (09:05→20:20)
[2018-05-30] MEDS: FUROSEMIDE 20 MG TAB PO (09:05)
[2018-05-30] MEDS: FOLIC ACID 1 MG TAB PO (09:05)
[2018-05-30] MEDS: PRAVASTATIN 10 MG TAB PO (20:20)
[2018-05-31] MEDS: ALBUTEROL SULFATE 2.5 MG/0.5 ML INH NEB SOLN NEB ×4 (02:00→21:01)
[2018-05-31] MEDS: TIOTROPIUM INHALER/CAPSULE (SPIRIVA) INH (08:00)
[2018-05-31] MEDS: DOCUSATE SODIUM 100 MG CAP PO ×2 (10:35→20:56)
[2018-05-31] MEDS: MULTIVITAMINS/MINERALS THERAP 1 TAB PO (10:35)
[2018-05-31] MEDS: FOLIC ACID 1 MG TAB PO (10:35)
[2018-05-31] MEDS: FUROSEMIDE 20 MG TAB PO (10:36)
[2018-05-31] MEDS: THIAMINE 100 MG TAB PO (10:36)
[2018-05-31] MEDS: MAGNESIUM OXIDE 400 MG TAB (MAG-OX) PO ×2 (10:36→20:56)
[2018-05-31] MEDS: LISINOPRIL *2.5 MG* TAB PO (10:41)
[2018-05-31] MEDS: METOPROLOL SUCC (TopROL XL) 100MG *XL* TAB PO (10:41)
[2018-05-31] MEDS: APIXABAN 5 MG TAB (ELIQUIS) PO ×2 (10:41→20:56)
[2018-05-31] MEDS: PRAVASTATIN 10 MG TAB PO (20:56)
[2018-06-01] MEDS: ALBUTEROL SULFATE 2.5 MG/0.5 ML INH NEB SOLN NEB ×4 (01:28→19:55)
[2018-06-01] MEDS: TIOTROPIUM INHALER/CAPSULE (SPIRIVA) INH (08:02)
[2018-06-01] MEDS: FOLIC ACID 1 MG TAB PO (08:23)
[2018-06-01] MEDS: APIXABAN 5 MG TAB (ELIQUIS) PO ×2 (08:23→20:37)
[2018-06-01] MEDS: THIAMINE 100 MG TAB PO (08:23)
[2018-06-01] MEDS: METOPROLOL SUCC (TopROL XL) 100MG *XL* TAB PO (08:24)
[2018-06-01] MEDS: MULTIVITAMINS/MINERALS THERAP 1 TAB PO (08:24)
[2018-06-01] MEDS: DOCUSATE SODIUM 100 MG CAP PO ×2 (08:24→20:37)
[2018-06-01] MEDS: LISINOPRIL *2.5 MG* TAB PO (08:24)
[2018-06-01] MEDS: MAGNESIUM OXIDE 400 MG TAB (MAG-OX) PO ×2 (08:24→20:37)
[2018-06-01] MEDS: FUROSEMIDE 20 MG TAB PO (08:24)
[2018-06-01] MEDS: PRAVASTATIN 10 MG TAB PO (20:38)
[2018-06-02] MEDS: ALBUTEROL SULFATE 2.5 MG/0.5 ML INH NEB SOLN NEB ×4 (02:00→21:14)
[2018-06-02] MEDS: TIOTROPIUM INHALER/CAPSULE (SPIRIVA) INH (07:55)
[2018-06-02] MEDS: LISINOPRIL *2.5 MG* TAB PO (08:02)
[2018-06-02] MEDS: THIAMINE 100 MG TAB PO (08:02)
[2018-06-02] MEDS: DOCUSATE SODIUM 100 MG CAP PO ×2 (08:02→20:19)
[2018-06-02] MEDS: MAGNESIUM OXIDE 400 MG TAB (MAG-OX) PO ×2 (08:02→20:19)
[2018-06-02] MEDS: APIXABAN 5 MG TAB (ELIQUIS) PO ×2 (08:02→20:19)
[2018-06-02] MEDS: METOPROLOL SUCC (TopROL XL) 100MG *XL* TAB PO (08:03)
[2018-06-02] MEDS: FOLIC ACID 1 MG TAB PO (08:03)
[2018-06-02] MEDS: MULTIVITAMINS/MINERALS THERAP 1 TAB PO (08:03)
[2018-06-02] MEDS: FUROSEMIDE 20 MG TAB PO (08:03)
[2018-06-02] MEDS: PRAVASTATIN 10 MG TAB PO (20:19)
[2018-06-03] MEDS: ALBUTEROL SULFATE 2.5 MG/0.5 ML INH NEB SOLN NEB ×5 (01:08→20:00)
[2018-06-03 06:30] LABS: HEMATOCRIT 38.6 % (42.0-52.0); HEMOGLOBIN 13.7 g/dl (13.5-17.5); MEAN CORPUSCULAR HEMOGLOBIN 32.8 pg (27.0-33.0); MEAN CORPUSCULAR HGB CONC 35.5 g/dl (32.0-36.5); MEAN CORPUSCULAR VOLUME 92.3 fl (80.0-96.0); PLATELET COUNT, AUTOMATED 169 10^3/uL (150-450); RED BLOOD COUNT 4.18 10^6/uL (4.30-6.10); RED CELL DISTRIBUTION WIDTH 12.8 % (11.5-14.5); WHITE BLOOD COUNT 8.9 10^3/uL (4.0-10.0)
[2018-06-03 07:04] LABS: ANION GAP 8 MEQ/L (8-16); BLOOD UREA NITROGEN 13 MG/DL (7-18); CALCIUM LEVEL 8.1 MG/DL (8.8-10.2); CARBON DIOXIDE LEVEL 24 MEQ/L (21-32); CHLORIDE LEVEL 94 MEQ/L (98-107); CREATININE FOR GFR 1.02 MG/DL (0.70-1.30); GLOMERULAR FILTRATION RATE > 60.0 (>49); GLUCOSE, FASTING 95 MG/DL (70-100); POTASSIUM SERUM 4.5 MEQ/L (3.5-5.1); SODIUM LEVEL 126 MEQ/L (136-145)
[2018-06-03] MEDS: TIOTROPIUM INHALER/CAPSULE (SPIRIVA) INH (08:00)
[2018-06-03] MEDS: FOLIC ACID 1 MG TAB PO (09:22)
[2018-06-03] MEDS: METOPROLOL SUCC (TopROL XL) 100MG *XL* TAB PO (09:22)
[2018-06-03] MEDS: DOCUSATE SODIUM 100 MG CAP PO ×2 (09:23→20:10)
[2018-06-03] MEDS: APIXABAN 5 MG TAB (ELIQUIS) PO ×2 (09:23→20:11)
[2018-06-03] MEDS: THIAMINE 100 MG TAB PO (09:23)
[2018-06-03] MEDS: MAGNESIUM OXIDE 400 MG TAB (MAG-OX) PO ×2 (09:23→20:11)
[2018-06-03] MEDS: MULTIVITAMINS/MINERALS THERAP 1 TAB PO (09:23)
[2018-06-03] MEDS: FUROSEMIDE 20 MG TAB PO (09:23)
[2018-06-03] MEDS: LISINOPRIL *2.5 MG* TAB PO (09:23)
[2018-06-03] MEDS: PRAVASTATIN 10 MG TAB PO (20:11)
[2018-06-04] MEDS: ALBUTEROL SULFATE 2.5 MG/0.5 ML INH NEB SOLN NEB ×2 (01:10→08:00)
[2018-06-04] MEDS: DOCUSATE SODIUM 100 MG CAP PO ×2 (08:09→20:03)
[2018-06-04] MEDS: LISINOPRIL *2.5 MG* TAB PO (08:09)
[2018-06-04] MEDS: APIXABAN 5 MG TAB (ELIQUIS) PO ×2 (08:09→20:03)
[2018-06-04] MEDS: MAGNESIUM OXIDE 400 MG TAB (MAG-OX) PO ×2 (08:09→20:03)
[2018-06-04] MEDS: FUROSEMIDE 20 MG TAB PO (08:09)
[2018-06-04] MEDS: FOLIC ACID 1 MG TAB PO (08:10)
[2018-06-04] MEDS: METOPROLOL SUCC (TopROL XL) 100MG *XL* TAB PO (08:10)
[2018-06-04] MEDS: MULTIVITAMINS/MINERALS THERAP 1 TAB PO (08:10)
[2018-06-04] MEDS: THIAMINE 100 MG TAB PO (08:10)
[2018-06-04] MEDS ORDERED: ALBUTEROL SULFATE 2.5 MG/0.5 ML INH NEB SOLN NEB (09:30)
[2018-06-04] MEDS: IPRATROPIUM 0.5MG/ALBUTEROL 2.5MG INH SOL UD 3ML (DUONEB)(J7620) NEB ×3 (11:49→23:37)
[2018-06-04] MEDS: TIOTROPIUM INHALER/CAPSULE (SPIRIVA) INH (13:30)
[2018-06-04] MEDS: PRAVASTATIN 10 MG TAB PO (20:03)
[2018-06-05 00:14] LABS: BEDSIDE GLUCOSE 165 MG/DL (80-115)
[2018-06-05] MEDS: BENZONATATE 100 MG CAP PO ×4 (00:44→20:15)
[2018-06-05] MEDS: guaiFENesin DM LIQ 10ML UD PO (00:44)
[2018-06-05] MEDS ORDERED: methylPREDNISolone INJ 40 MG/1 ML VIAL (J2920) As Ordered (02:33)
[2018-06-05] MEDS ORDERED: FUROSEMIDE 40 MG/4 ML VIAL (J1940) As Ordered (02:33)
[2018-06-05] MEDS: FUROSEMIDE 40 MG/4 ML VIAL (J1940) IV ×2 (02:37→08:14)
[2018-06-05] MEDS: methylPREDNISolone INJ 40 MG/1 ML VIAL (J2920) IV (02:37)
[2018-06-05] MEDS: methylPREDNISolone INJ 125 MG/2 ML VIAL (J2930) IV (02:46)
[2018-06-05 03:20] LABS: C REACTIVE PROTEIN QUANTITATIV 0.32 MG/DL (0.00-0.30)
[2018-06-05 03:51] LABS: LACTIC ACID SEPSIS PROTOCOL 2.7 MMOL/L (0.4-2.0)
[2018-06-05] MEDS ORDERED: PIPERACILLIN/TAZOBACTAM SOD 3.375 GM in D5W MINI-BAG PLUS 50 ML IV (04:00)
[2018-06-05 04:20] LABS: ABG BASE EXCESS -3.3 (-2.0-2.0); ABG HCO3 20.9 MEQ/L (22.0-26.0); ABG O2 SATURATION 95.5 % (95.0-99.0); ABG PARTIAL PRESSURE CO2 35.1 mmHg (35.0-45.0); ABG PARTIAL PRESSURE O2 79.9 mmHg (75.0-100.0); ABG STANDARD HCO3 21.7 MEQ/L (22.0-26.0); ABG pH (ARTERIAL) 7.393 UNITS (7.350-7.450)
[2018-06-05] MEDS: METOPROLOL 5 MG/5 ML VIAL IV (04:25)
[2018-06-05 05:12] LABS: HEMATOCRIT 36.1 % (42.0-52.0); HEMOGLOBIN 12.6 g/dl (13.5-17.5); MEAN CORPUSCULAR HEMOGLOBIN 32.7 pg (27.0-33.0); MEAN CORPUSCULAR HGB CONC 34.9 g/dl (32.0-36.5); MEAN CORPUSCULAR VOLUME 93.8 fl (80.0-96.0); PLATELET COUNT, AUTOMATED 159 10^3/uL (150-450); RED BLOOD COUNT 3.85 10^6/uL (4.30-6.10); RED CELL DISTRIBUTION WIDTH 12.9 % (11.5-14.5); WHITE BLOOD COUNT 12.1 10^3/uL (4.0-10.0)
[2018-06-05 05:38] LABS: ALBUMIN 3.2 GM/DL (3.2-5.2); ALBUMIN/GLOBULIN RATIO 1.07 (1.00-1.93); ALKALINE PHOSPHATASE 99 U/L (45-117); ALT/SGPT 19 U/L (12-78); ANION GAP 10 MEQ/L (8-16); AST/SGOT 17 U/L (7-37); BILIRUBIN,TOTAL 1.6 MG/DL (0.2-1.0); BLOOD UREA NITROGEN 15 MG/DL (7-18); C REACTIVE PROTEIN QUANTITATIV 0.37 MG/DL (0.00-0.30); CARBON DIOXIDE LEVEL 25 MEQ/L (21-32); CHLORIDE LEVEL 93 MEQ/L (98-107); CREATININE FOR GFR 1.06 MG/DL (0.70-1.30); GLOMERULAR FILTRATION RATE > 60.0 (>49); GLUCOSE, FASTING 112 MG/DL (70-100); SODIUM LEVEL 128 MEQ/L (136-145); TOTAL PROTEIN 6.2 GM/DL (6.4-8.2)
[2018-06-05 05:38] LABS: TROPONIN I 0.02 NG/ML (< 0.10)
[2018-06-05] MEDS: TIOTROPIUM INHALER/CAPSULE (SPIRIVA) INH (07:59)
[2018-06-05] MEDS: DOCUSATE SODIUM 100 MG CAP PO ×2 (08:14→20:15)
[2018-06-05] MEDS: THIAMINE 100 MG TAB PO (08:15)
[2018-06-05] MEDS: APIXABAN 5 MG TAB (ELIQUIS) PO ×2 (08:15→20:15)
[2018-06-05] MEDS: LISINOPRIL *2.5 MG* TAB PO (08:15)
[2018-06-05] MEDS: FOLIC ACID 1 MG TAB PO (08:15)
[2018-06-05] MEDS: MULTIVITAMINS/MINERALS THERAP 1 TAB PO (08:15)
[2018-06-05] MEDS: MAGNESIUM OXIDE 400 MG TAB (MAG-OX) PO ×2 (08:15→20:15)
[2018-06-05] MEDS: METOPROLOL SUCC (TopROL XL) 100MG *XL* TAB PO (08:16)
[2018-06-05] MEDS ORDERED: MAG SULF 1GM/100ML (MAG RUN) 1 GM in APPROPRIATE DILUENT 1 EA IV (10:15)
[2018-06-05 12:44] LABS: MAGNESIUM LEVEL 1.8 MG/DL (1.8-2.4)
[2018-06-05 12:53] LABS: TROPONIN I < 0.02 NG/ML (< 0.10)
[2018-06-05 13:48] LABS: OSMOLALITY URINE 293 MOSM/KG (500-800)
[2018-06-05 14:00] LABS: CHLORIDE,RANDOM URINE 80 MEQ/L; CREATININE,RANDOM URINE 41.1 MG/DL; POTASSIUM RANDOM URINE 41.4 MEQ/L; SODIUM,RANDOM URINE 40 MEQ/L; TOTAL PROTEIN,RANDOM URINE 81.5 MG/DL (0.0-12.0); URIC ACID,RANDOM URINE 18.3 MG/DL
[2018-06-05] MEDS: PRAVASTATIN 10 MG TAB PO (20:15)
[2018-06-06 05:01] LABS: HEMATOCRIT 34.9 % (42.0-52.0); HEMOGLOBIN 12.6 g/dl (13.5-17.5); MEAN CORPUSCULAR HEMOGLOBIN 33.1 pg (27.0-33.0); MEAN CORPUSCULAR HGB CONC 36.1 g/dl (32.0-36.5); MEAN CORPUSCULAR VOLUME 91.6 fl (80.0-96.0); PLATELET COUNT, AUTOMATED 153 10^3/uL (150-450); RED BLOOD COUNT 3.81 10^6/uL (4.30-6.10); RED CELL DISTRIBUTION WIDTH 12.7 % (11.5-14.5); WHITE BLOOD COUNT 9.8 10^3/uL (4.0-10.0)
[2018-06-06 05:20] LABS: ANION GAP 6 MEQ/L (8-16); BLOOD UREA NITROGEN 19 MG/DL (7-18); CALCIUM LEVEL 8.1 MG/DL (8.8-10.2); CARBON DIOXIDE LEVEL 29 MEQ/L (21-32); CHLORIDE LEVEL 96 MEQ/L (98-107); CREATININE FOR GFR 1.17 MG/DL (0.70-1.30); GLOMERULAR FILTRATION RATE > 60.0 (>49); GLUCOSE, FASTING 102 MG/DL (70-100); MAGNESIUM LEVEL 1.9 MG/DL (1.8-2.4); POTASSIUM SERUM 3.8 MEQ/L (3.5-5.1); SODIUM LEVEL 131 MEQ/L (136-145)
[2018-06-06] MEDS: TIOTROPIUM INHALER/CAPSULE (SPIRIVA) INH (07:57)
[2018-06-06] MEDS: MULTIVITAMINS/MINERALS THERAP 1 TAB PO (09:02)
[2018-06-06] MEDS: BENZONATATE 100 MG CAP PO ×3 (09:02→21:10)
[2018-06-06] MEDS: MAGNESIUM OXIDE 400 MG TAB (MAG-OX) PO ×2 (09:02→21:10)
[2018-06-06] MEDS: APIXABAN 5 MG TAB (ELIQUIS) PO ×2 (09:02→21:10)
[2018-06-06] MEDS: THIAMINE 100 MG TAB PO (09:02)
[2018-06-06] MEDS: FOLIC ACID 1 MG TAB PO (09:02)
[2018-06-06] MEDS: DOCUSATE SODIUM 100 MG CAP PO ×2 (09:02→21:10)
[2018-06-06] MEDS: FUROSEMIDE 40 MG/4 ML VIAL (J1940) IV (09:03)
[2018-06-06] MEDS: METOPROLOL SUCC (TopROL XL) 100MG *XL* TAB PO (09:04)
[2018-06-06] MEDS: LISINOPRIL *2.5 MG* TAB PO (09:04)
[2018-06-06] MEDS: PRAVASTATIN 10 MG TAB PO (21:10)
[2018-06-07 05:54] LABS: HEMATOCRIT 36.4 % (42.0-52.0); MEAN CORPUSCULAR HEMOGLOBIN 33.1 pg (27.0-33.0); MEAN CORPUSCULAR HGB CONC 35.7 g/dl (32.0-36.5); MEAN CORPUSCULAR VOLUME 92.6 fl (80.0-96.0); PLATELET COUNT, AUTOMATED 153 10^3/uL (150-450); RED BLOOD COUNT 3.93 10^6/uL (4.30-6.10); RED CELL DISTRIBUTION WIDTH 13.2 % (11.5-14.5); WHITE BLOOD COUNT 9.8 10^3/uL (4.0-10.0)
[2018-06-07 06:23] LABS: ANION GAP 9 MEQ/L (8-16); BLOOD UREA NITROGEN 22 MG/DL (7-18); CARBON DIOXIDE LEVEL 27 MEQ/L (21-32); CHLORIDE LEVEL 97 MEQ/L (98-107); CREATININE FOR GFR 1.06 MG/DL (0.70-1.30); GLOMERULAR FILTRATION RATE > 60.0 (>49); GLUCOSE, FASTING 83 MG/DL (70-100); POTASSIUM SERUM 3.9 MEQ/L (3.5-5.1); SODIUM LEVEL 133 MEQ/L (136-145)
[2018-06-07] MEDS: TIOTROPIUM INHALER/CAPSULE (SPIRIVA) INH (07:30)
[2018-06-07] MEDS: FUROSEMIDE 40 MG/4 ML VIAL (J1940) IV (08:07)
[2018-06-07] MEDS: DOCUSATE SODIUM 100 MG CAP PO ×2 (08:08→21:07)
[2018-06-07] MEDS: FOLIC ACID 1 MG TAB PO (08:08)
[2018-06-07] MEDS: APIXABAN 5 MG TAB (ELIQUIS) PO ×2 (08:08→21:07)
[2018-06-07] MEDS: LISINOPRIL *2.5 MG* TAB PO (08:08)
[2018-06-07] MEDS: METOPROLOL SUCC (TopROL XL) 100MG *XL* TAB PO (08:08)
[2018-06-07] MEDS: MULTIVITAMINS/MINERALS THERAP 1 TAB PO (08:08)
[2018-06-07] MEDS: MAGNESIUM OXIDE 400 MG TAB (MAG-OX) PO ×2 (08:08→21:06)
[2018-06-07] MEDS: THIAMINE 100 MG TAB PO (08:08)
[2018-06-07] MEDS: BENZONATATE 100 MG CAP PO ×3 (09:00→21:06)
[2018-06-07] MEDS ORDERED: SLF 3 ML SYR IV (09:00)
[2018-06-07] MEDS: SLF 3 ML SYR IV ×2 (11:11→21:09)
[2018-06-07] MEDS ORDERED: METOPROLOL SUCC (TopROL XL) 100MG *XL* TAB PO (21:00)
[2018-06-07] MEDS: PRAVASTATIN 10 MG TAB PO (21:07)
[2018-06-07] MEDS: METOPROLOL SUCC *XL* 25MG TAB (TopROL *XL*) PO (21:09)
[2018-06-08] MEDS: SLF 3 ML SYR IV ×3 (05:06→21:00)
[2018-06-08 05:49] LABS: HEMATOCRIT 38.3 % (42.0-52.0); HEMOGLOBIN 13.3 g/dl (13.5-17.5); MEAN CORPUSCULAR HEMOGLOBIN 32.6 pg (27.0-33.0); MEAN CORPUSCULAR HGB CONC 34.7 g/dl (32.0-36.5); MEAN CORPUSCULAR VOLUME 93.9 fl (80.0-96.0); PLATELET COUNT, AUTOMATED 172 10^3/uL (150-450); RED BLOOD COUNT 4.08 10^6/uL (4.30-6.10); RED CELL DISTRIBUTION WIDTH 13.2 % (11.5-14.5)
[2018-06-08 06:16] LABS: ANION GAP 8 MEQ/L (8-16); BLOOD UREA NITROGEN 19 MG/DL (7-18); CALCIUM LEVEL 7.9 MG/DL (8.8-10.2); CARBON DIOXIDE LEVEL 28 MEQ/L (21-32); CHLORIDE LEVEL 97 MEQ/L (98-107); CREATININE FOR GFR 1.05 MG/DL (0.70-1.30); GLOMERULAR FILTRATION RATE > 60.0 (>49); GLUCOSE, FASTING 104 MG/DL (70-100); MAGNESIUM LEVEL 2.1 MG/DL (1.8-2.4); POTASSIUM SERUM 3.8 MEQ/L (3.5-5.1); SODIUM LEVEL 133 MEQ/L (136-145)
[2018-06-08] MEDS: TIOTROPIUM INHALER/CAPSULE (SPIRIVA) INH (07:28)
[2018-06-08] MEDS: LISINOPRIL *2.5 MG* TAB PO (09:00)
[2018-06-08] MEDS: METOPROLOL SUCC *XL* 25MG TAB (TopROL *XL*) PO ×4 (09:00→20:28)
[2018-06-08] MEDS: DOCUSATE SODIUM 100 MG CAP PO ×2 (09:20→20:29)
[2018-06-08] MEDS: MAGNESIUM OXIDE 400 MG TAB (MAG-OX) PO ×2 (09:20→20:28)
[2018-06-08] MEDS: THIAMINE 100 MG TAB PO (09:20)
[2018-06-08] MEDS: MULTIVITAMINS/MINERALS THERAP 1 TAB PO (09:20)
[2018-06-08] MEDS: FOLIC ACID 1 MG TAB PO (09:21)
[2018-06-08] MEDS: BENZONATATE 100 MG CAP PO ×3 (09:21→20:29)
[2018-06-08] MEDS: APIXABAN 5 MG TAB (ELIQUIS) PO ×2 (09:21→20:27)
[2018-06-08] MEDS: FUROSEMIDE 20 MG TAB PO (09:24)
[2018-06-08] MEDS: PRAVASTATIN 10 MG TAB PO (20:29)
[2018-06-09] MEDS: SLF 3 ML SYR IV ×3 (05:16→20:18)
[2018-06-09 05:49] LABS: HEMATOCRIT 38.8 % (42.0-52.0); HEMOGLOBIN 13.5 g/dl (13.5-17.5); MEAN CORPUSCULAR HEMOGLOBIN 32.7 pg (27.0-33.0); MEAN CORPUSCULAR HGB CONC 34.8 g/dl (32.0-36.5); MEAN CORPUSCULAR VOLUME 93.9 fl (80.0-96.0); PLATELET COUNT, AUTOMATED 181 10^3/uL (150-450); RED BLOOD COUNT 4.13 10^6/uL (4.30-6.10); RED CELL DISTRIBUTION WIDTH 13.1 % (11.5-14.5); WHITE BLOOD COUNT 7.9 10^3/uL (4.0-10.0)
[2018-06-09 06:29] LABS: ANION GAP 5 MEQ/L (8-16); BLOOD UREA NITROGEN 17 MG/DL (7-18); CALCIUM LEVEL 7.7 MG/DL (8.8-10.2); CARBON DIOXIDE LEVEL 30 MEQ/L (21-32); CHLORIDE LEVEL 96 MEQ/L (98-107); CREATININE FOR GFR 0.99 MG/DL (0.70-1.30); GLOMERULAR FILTRATION RATE > 60.0 (>49); GLUCOSE, FASTING 82 MG/DL (70-100); POTASSIUM SERUM 3.9 MEQ/L (3.5-5.1); SODIUM LEVEL 131 MEQ/L (136-145)
[2018-06-09] MEDS: LISINOPRIL *2.5 MG* TAB PO (08:18)
[2018-06-09] MEDS: BENZONATATE 100 MG CAP PO ×3 (08:18→20:17)
[2018-06-09] MEDS: FUROSEMIDE 20 MG TAB PO (08:18)
[2018-06-09] MEDS: MAGNESIUM OXIDE 400 MG TAB (MAG-OX) PO ×2 (08:18→20:16)
[2018-06-09] MEDS: DOCUSATE SODIUM 100 MG CAP PO ×2 (08:19→20:17)
[2018-06-09] MEDS: FOLIC ACID 1 MG TAB PO (08:19)
[2018-06-09] MEDS: METOPROLOL SUCC (TopROL XL) 100MG *XL* TAB PO ×2 (08:19→20:17)
[2018-06-09] MEDS: THIAMINE 100 MG TAB PO (08:19)
[2018-06-09] MEDS: MULTIVITAMINS/MINERALS THERAP 1 TAB PO (08:19)
[2018-06-09] MEDS: APIXABAN 5 MG TAB (ELIQUIS) PO ×2 (08:19→20:16)
[2018-06-09] MEDS: TIOTROPIUM INHALER/CAPSULE (SPIRIVA) INH (08:44)
[2018-06-09] MEDS: SPIRONOLACTONE 12.5MG PER 1/2 TABLET PO (13:46)
[2018-06-09] MEDS: PRAVASTATIN 10 MG TAB PO (20:16)
[2018-06-10 05:07] LABS: HEMOGLOBIN 11.8 g/dl (13.5-17.5); MEAN CORPUSCULAR HEMOGLOBIN 32.5 pg (27.0-33.0); MEAN CORPUSCULAR HGB CONC 34.7 g/dl (32.0-36.5); MEAN CORPUSCULAR VOLUME 93.7 fl (80.0-96.0); PLATELET COUNT, AUTOMATED 195 10^3/uL (150-450); RED BLOOD COUNT 3.63 10^6/uL (4.30-6.10); RED CELL DISTRIBUTION WIDTH 13.1 % (11.5-14.5); WHITE BLOOD COUNT 10.3 10^3/uL (4.0-10.0)
[2018-06-10 05:24] LABS: ANION GAP 5 MEQ/L (8-16); BLOOD UREA NITROGEN 17 MG/DL (7-18); CALCIUM LEVEL 8.3 MG/DL (8.8-10.2); CARBON DIOXIDE LEVEL 31 MEQ/L (21-32); CHLORIDE LEVEL 97 MEQ/L (98-107); CREATININE FOR GFR 1.07 MG/DL (0.70-1.30); GLOMERULAR FILTRATION RATE > 60.0 (>49); GLUCOSE, FASTING 118 MG/DL (70-100); POTASSIUM SERUM 4.3 MEQ/L (3.5-5.1); SODIUM LEVEL 133 MEQ/L (136-145)
[2018-06-10] MEDS: SLF 3 ML SYR IV (05:31)
[2018-06-10] MEDS: SPIRONOLACTONE 12.5MG PER 1/2 TABLET PO (08:17)
[2018-06-10] MEDS: FUROSEMIDE 20 MG TAB PO (08:17)
[2018-06-10] MEDS: APIXABAN 5 MG TAB (ELIQUIS) PO (08:17)
[2018-06-10] MEDS: MULTIVITAMINS/MINERALS THERAP 1 TAB PO (08:18)
[2018-06-10] MEDS: BENZONATATE 100 MG CAP PO (08:18)
[2018-06-10] MEDS: FOLIC ACID 1 MG TAB PO (08:18)
[2018-06-10] MEDS: DOCUSATE SODIUM 100 MG CAP PO (08:19)
[2018-06-10] MEDS: THIAMINE 100 MG TAB PO (08:19)
[2018-06-10] MEDS: METOPROLOL SUCC (TopROL XL) 100MG *XL* TAB PO (08:19)
[2018-06-10] MEDS: MAGNESIUM OXIDE 400 MG TAB (MAG-OX) PO (08:19)
[2018-06-10] MEDS: LISINOPRIL *2.5 MG* TAB PO (08:24)
== END 2018-06-10 09:45 | DRG 64 ==
LOC: M MSPAV 06-03 14:24 → M ICU 06-05 03:00 → M PCU 06-06 17:22 → M MSPAV 17:35
DX: I63.59 Cerebral infarction due to unspecified occlusion or stenosis of other cerebral artery (principal); I50.23 Acute on chronic systolic (congestive) heart failure; E87.1 Hypo-osmolality and hyponatremia; J44.1 Chronic obstructive pulmonary disease with (acute) exacerbation; I48.91 Unspecified atrial fibrillation; F10.10 Alcohol abuse, uncomplicated; I27.20 Pulmonary hypertension, unspecified; I50.812 Chronic right heart failure; F03.90 Unspecified dementia, unspecified severity, without behavioral disturbance, psychotic disturbance, mood disturbance, and anxiety; R26.89 Other abnormalities of gait and mobility; Z79.01 Long term (current) use of anticoagulants; Z91.19 Patient's noncompliance with other medical treatment and regimen; Z79.899 Other long term (current) drug therapy